=== PATIENT | female | born 1950 | race Two or more races ===

== ENCOUNTER 2017-10-11 07:12 | Outpatient (CLI) | payer OTHER | END 2017-10-11 07:26 | disposition home or self-care (01) | LOC: TOM 07:12 | DX: K63.5 Polyp of colon (principal); K56.50 Intestinal adhesions [bands], unspecified as to partial versus complete obstruction ==

== ENCOUNTER 2022-06-12 19:36 | Emergency (ER) | payer OTHER ==
[~2022-06-12] VITALS: Ht 154.9 cm; Wt 54.4 kg
[2022-06-12] MEDS ORDERED: SYNTHROID100 MCG PO (19:54)
[2022-06-12] MEDS ORDERED: LOSARTAN POTASS50 MG PO (19:55)
== END 2022-06-12 22:11 | disposition home or self-care (01) ==
LOC: ER 19:36
DX: U07.1 COVID-19 (principal)